=== PATIENT | female | born 1990 | race Caucasian/White ===

== ENCOUNTER → 2017-03-05 | Outpatient (CLI) | payer BC ==
[~2017-03-05] MED LIST: CETI10TA84 PO; PRENTAB26 PO; PRLSR20 PO
== END | disposition home or self-care (01) ==
LOC: C.PAPS 08:28
PROVIDERS: ATTEND Obstetrics & Gynecology
DX: Z01.419 Encounter for gynecological examination (general) (routine) without abnormal findings (principal)

== ENCOUNTER 2019-08-17 19:30 | Inpatient (IN) ==
[2019-08-17] MEDS ORDERED: LACTATED RINGER'S 1,000 ML IV PRN (19:38)
[2019-08-17] MEDS ORDERED: OXYTOCIN 30 UNITS/500 ML BAG IV PRN ×2 (19:38→22:15)
[2019-08-17] MEDS ORDERED: ePHEDrine sulfate 50 MG/ML AMP ONE (19:51)
[2019-08-17] MEDS ORDERED: fentaNYL citrate 100 MCG/2 ML VIAL ONE (19:51)
[2019-08-17] MEDS ORDERED: BUPIVACAINE 0.25% 30 ML VIAL ONE (19:52)
[2019-08-17] MEDS ORDERED: fentaNYL 2MCG/ML ROPIV 1.25MG/ML 100 ML BAG EPI ONE (19:52)
[2019-08-17 20:13] LABS: Hematocrit (blood only) 39.4 % (37-47); Hemoglobin 13.6 g/dL (12.0-16.0); Mean Corpuscular Hemoglobin 29.2 pg (25-34); Mean Corpuscular Volume 84.5 fL (80-100); Mean Platelet Volume 9.4 fL (7.4-10.4); Platelet Count 244 K/uL (130-400); RDW Standard Deviation 39.3 fL (36.4-46.3); Red Blood Count 4.66 M/uL (4.2-5.4); White Blood Count 13.98 K/uL (4.8-10.8)
[2019-08-17 20:20] LABS: Mean Corpuscular Hgb Conc 34.5 g/dL (32-36)
--- NOTE | 2019-08-17 20:37 | Anesthesiology Consultation ---
Date of Service August 17, 2019 Assessment & Plan Chart Review Chart Review: Acceptable Risk for Surgery, Patient NOT seen in Pre Admission Testing and Acceptable Risk for Labor Epidural Consults Requested none ASA ASA2 Proposed Anesthesia Anesthesia Type: Labor Epidural and CSE Risk / Benefits Reviewed With: PT / POA / Parent / Guardian, Accepts Plan and Informed Consent Obtained History Height/Weight Height: 5 ft 5 in Weight: 78.018 kg Allergies Allergy/AdvReac Type Severity Reaction Status Date / Time No Known Allergies Allergy Verified 08/11/19 14:12 Medications Home Medications Medication Instructions Recorded Confirmed Last Taken cetirizine [Zyrtec] 10 mg PO DAILY 10/28/18 08/11/19 07/29/19 05:30 PNV cmb#95-ferrous fumarate-FA 1 tab PO DAILY 07/29/19 08/11/19 07/28/19 21:00 [] omeprazole PO 08/05/19 08/11/19 Unknown guaifenesin PO 08/11/19 08/11/19 Unknown pseudoephedrine HCl PO 08/11/19 08/11/19 Unknown Active Medications Generic Name Dose Route Start Last Admin Trade Name Freq PRN Reason Stop Dose Admin Lactated Ringer's 1,000 mls @ 125 mls/hr 08/17/19 19:38 08/17/19 19:45 Lr IV 08/19/19 19:37 999 mls/hr .Q8H PRN Administration L&D Protocol Protocol NPO Date Last Intake of Fluids: 08/17/19 Time Last Intake of Fluids: 20:00 Date Last Intake of Solids: 08/17/19 Time Last Intake of Solids: 18:00 Past Medical History Medical History 39 weeks gestation of 40 weeks gestation of False labor History of prolonged History of varicella vaccination Irregular contractions Normal labor Exercise / Class Metabolic Activity II 4-5 Yardwork/Stairs/Walk up hill Past Family History Family History Father Dyslipidemia Hypertension Other No pertinent family history in first degree relatives Past Surgical History Surgical History History of wisdom tooth extraction Past Anesthesia History No Hx of Anesthesia Complications and No Family Hx of Anesthesia Complications History of PONV No Hx of PONV and No Hx of Motion Sickness Social History Smoking Status: Never smoker Hx Alcohol Use: No Hx Substance Use: No substance use type: does not use Physical Exam Vital Signs Last Vital Signs Temp 36.5 C 08/17/19 19:52 Pulse 101 H 08/17/19 20:32 Resp 20 08/17/19 19:52 BP 123/75 08/17/19 20:21 Pulse Ox 100 08/17/19 20:32 Constitutional + obese ENMT Mouth: no dentition abnormality Thyromental Distance: > or= 3.5 Finger Breadths Mallampati Class: II Neck normal visual inspection and trachea midline; neck extension not limited Respiratory normal respiratory effort Auscultation: lungs clear to auscultation bilaterally Cardiovascular Rate/Rhythm: regular rate and regular rhythm Heart Sounds: no murmur Vessels: no carotid bruit Musculoskeletal Spine: lumbar spine normal to inspection; normal cervical ROM Neurologic moves all extremities Motor/Sensory: no sensory deficit Psychiatric Orientation: alert and oriented x 3 Testing Laboratory Results 08/17/19 19:57
[2019-08-17] MEDS ORDERED: PROMETHAZINE HCL 25 MG in SODIUM CHLORIDE 0.9% 50 ML IV PRN (20:58)
[2019-08-17] MEDS ORDERED: NALBUPHINE HCL INJ 10 MG/ML AMP IV PRN (20:58)
[2019-08-17] MEDS ORDERED: DiphenhydrAMINE HCL 50 MG/ML VIAL IV PRN (20:58)
[2019-08-17] MEDS ORDERED: fentaNYL 2MCG/ML ROPIV 1.25MG/ML 100 ML BAG EPI PRN (20:58)
[2019-08-17] MEDS ORDERED: ePHEDrine sulfate 50 MG/ML AMP IV PRN (20:58)
[2019-08-17] MEDS ORDERED: NALOXONE HCL 0.4 MG/1 ML VIAL/CARP IV PRN (20:58)
[2019-08-17] MEDS ORDERED: NALOXONE HCL 1 MG in SODIUM CHLORIDE 0.9% 1000ML 1,000 ML IV PRN (20:58)
[2019-08-17] MEDS ORDERED: ONDANSETRON INJ 2 MG/ML 2 ML VIAL IV PRN (20:58)
[2019-08-17] MEDS ORDERED: HYDROCORTISONE ACETATE 25 MG SUPP PR PRN (22:15)
[2019-08-17] MEDS ORDERED: ACETAMINOPHEN 325 MG TAB PO PRN (22:15)
[2019-08-17] MEDS ORDERED: SUPERCREAM 0.870% 15 GM JAR EXT PRN (22:15)
[2019-08-17] MEDS ORDERED: BENZOCAINE 20% AER SPR 82.5 GM CAN EXT PRN (22:15)
[2019-08-17] MEDS ORDERED: OXYCODONE/ACETAMINOPHEN 5mg/325mg TAB PO PRN (22:15)
--- NOTE | 2019-08-17 22:22 | History & Physical Report ---
Date of Service August 17, 2019 Assessment & Plan (1) Active labor at term: will begin 2nd stage. fhts overall reassuring. History of Present Illness Chief Complaint: regular ctx and possible rom Primary Care Provider: Toni Montoya MD 29yo at 40wks mayra presents to L&D with above cc. She presented to L&D and 6cm with srom, clear fluid and desired epidural. 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 PMH: allergies PSH: wisdom teeth SH: no tob, etoh, drugs FH: no brandon anom or mr Allergies Allergy/AdvReac Type Severity Reaction Status Date / Time No Known Allergies Allergy Verified 08/11/19 14:12 Home Medications Home Medications Medication Instructions Recorded Confirmed Type cetirizine [Zyrtec] 10 mg PO DAILY 10/28/18 08/11/19 History PNV cmb#95-ferrous fumarate-FA 1 tab PO DAILY 07/29/19 08/11/19 History [] omeprazole PO 08/05/19 08/11/19 History guaifenesin PO 08/11/19 08/11/19 History pseudoephedrine HCl PO 08/11/19 08/11/19 History Patient History Medical History 39 weeks gestation of 40 weeks gestation of False labor History of prolonged History of varicella vaccination Irregular contractions Normal labor Surgical History History of wisdom tooth extraction Family History Father Dyslipidemia Hypertension Other No pertinent family history in first degree relatives Social History (Updated 03/17/19 @ 15:58 by Bijal Balbuena) Preferred Language: Nepalese Communication Ability: Effective Physical Education Teacher Required: No Beliefs That Will Affect Care: None marital status: Current Living Situation: Family Current Living Situation Comment: lives with and daughter Other Information That Helps Us Care for You: No Feels Safe at Home: Yes Safety Concerns: Feels Safe At This Time Smoking Status: Never smoker Second Hand Exposure: No ; Tobacco Cessation Education Requested by Patient: No Hx Alcohol Use: No Hx Substance Use: No Review of Systems no fever no change in stools no dysuria Physical Exam Constitutional: WD/WN, vitals as above Gastrointestinal (Abdomen): Percussion/Palpation: abdomen soft (gravid); abdomen nontender Psychiatric: A+Ox3, euthymic affect Genitourinary: Manual OB Exam: + cervical dilation 10 cm, + cervical effacement 100% and + station + 2 OB Exam Monitor Tracing: + external FHT monitor used (100, decel to 70s with pushing. ), + scalp electrode used (applied due to maternal pulse very similar), + external uterine monitor used (q3) and + normal FHT variability after fse applied, fhts 105 with accels, early decels. Results & Data Vital Signs (Past 12 Hours) Vital Signs Temp Pulse Resp BP Pulse Ox 08/17/19 22:06 101 H 134/85 08/17/19 21:52 100 H 100 08/17/19 21:50 105 H 139/78 93 08/17/19 21:48 93 H 116/66 08/17/19 21:47 104 H 98 08/17/19 21:42 119 H 98 08/17/19 21:39 105 H 85 L 08/17/19 21:37 100 H 100 08/17/19 21:34 96 H 132/60 08/17/19 21:33 109 H 92 08/17/19 21:32 110 H 96 08/17/19 21:27 104 H 100 08/17/19 21:22 106 H 100 08/17/19 21:20 100 H 90 08/17/19 21:18 97 H 119/59 L 08/17/19 21:17 98 H 90 08/17/19 21:14 101 H 82 L 08/17/19 21:12 98 H 100 08/17/19 21:07 92 H 100 08/17/19 21:03 93 H 117/60 08/17/19 21:02 89 100 08/17/19 21:00 93 H 176/68 H 08/17/19 20:57 90 111/66 96 08/17/19 20:56 86 108/53 L 08/17/19 20:55 90 112/55 L 08/17/19 20:52 88 93 08/17/19 20:49 95 H 134/64 08/17/19 20:47 119 H 91 08/17/19 20:45 93 H 132/73 08/17/19 20:42 99 H 100 08/17/19 20:38 96 H 155/74 H 08/17/19 20:37 101 H 100 08/17/19 20:32 101 H 100 08/17/19 20:27 86 100 08/17/19 20:22 95 H 100 08/17/19 20:21 83 123/75 08/17/19 19:52 97.7 F 95 H 20 135/82 08/17/19 19:39 95 H 135/82
[2019-08-17] MEDS ORDERED: DIPHTHERIA/TETANUS/PERTUSSIS 0.5 ML SYR/VIAL IM ONE (22:27)
[2019-08-17] MEDS ORDERED: OXYTOCIN 20 UNITS in LACTATED RINGER'S 1,000 ML IV SCH (22:30)
--- NOTE | 2019-08-17 22:31 | Delivery Summary ---
Vaginal Delivery Summary Date of Service August 17, 2019 The patient dilated to complete and pushed to deliver a viable female Apgars 8 and 9 via over intact perineum. Mouth and nose bulb suctioned at perineum. Shoulders and body delivered with ease. was vigorous and crying at . Cord clamped at 30 seconds of life and to maternal abdomen where the cord was then doubly clamped and cut. Placenta delivered spontaneously and intact, three-vessel cord. Hemostasis achieved with dilute pitocin and uterine massage and drainage of the bladder for approximately 150 cc under sterile conditions. Cervix and sulci intact. EBL 300 cc. Mother and baby stable recovery. MNP Vaginal Delivery Charge Vaginal Delivery Codes: 23543 global code for the antepartum, delivery, and post-
--- NOTE | 2019-08-17 22:37 | Anesthesia Procedure Note ---
Date of Service August 17, 2019 Anesthesia Post Epidural Note Vital Signs Vital Signs: Temp Pulse Resp BP Pulse Ox 36.5 C 96 H 20 121/73 100 08/17/19 19:52 08/17/19 22:35 08/17/19 19:52 08/17/19 22:35 08/17/19 21:52 Notes Mental Status: alert / awake / arousable Nausea / Vomiting: adequately controlled Pain: adequately controlled Airway Patency, RR, SpO2: stable & adequate BP & HR: stable & adequate Hydration State: stable & adequate Neuraxial Anesthesia: was administered and sensory block is resolving Anesthetic Complications: no major complications apparent Epidural: Removed without complications and With tip intact
--- NOTE | 2019-08-18 07:18 | Obstetrical Progress Note ---
Date of Service August 18, 2019 Assessment & Plan (1) Normal delivery at term: routine pp care. rh pos, ri. breast feeding. doing well, stable. Subjective Ambulation: ambulating normally Voiding: no voiding problems Diet Tolerance:: regular diet Lochia:: Moderate Feeding Type:: breast feeding no pain issues Physical Exam Constitutional WD/WN, vitals as above Respiratory normal respiratory effort, lungs clear to auscultation Cardiovascular Rate/Rhythm: regular rate and regular rhythm Gastrointestinal (Abdomen) Percussion/Palpation: abdomen soft; abdomen nontender ff 2 down nt Neurologic grossly normal Psychiatric A+Ox3, euthymic affect Lymphatic no cervical or axillary lymphadenopathy (no supraclavicular adenopathy) Results & Data Vital Signs (Past 12 Hours) Vital Signs Temp Pulse Pulse Resp BP BP Pulse Ox 08/18/19 04:45 98.1 F 78 16 109/72 98 08/18/19 00:25 98.4 F 87 17 122/75 98 08/17/19 23:50 86 133/69 08/17/19 23:35 82 127/64 08/17/19 23:20 86 18 134/60 08/17/19 23:05 79 130/72 08/17/19 22:50 83 120/65 08/17/19 22:35 96 H 121/73 08/17/19 22:20 89 126/73 08/17/19 22:06 101 H 134/85 08/17/19 21:52 100 H 100 08/17/19 21:50 105 H 139/78 93 08/17/19 21:48 93 H 116/66 08/17/19 21:47 104 H 98 08/17/19 21:42 119 H 98 08/17/19 21:39 105 H 85 L 08/17/19 21:37 100 H 100 08/17/19 21:34 96 H 132/60 08/17/19 21:33 109 H 92 08/17/19 21:32 110 H 96 08/17/19 21:27 104 H 100 08/17/19 21:22 106 H 100 08/17/19 21:20 100 H 90 08/17/19 21:18 97 H 119/59 L 08/17/19 21:17 98 H 90 08/17/19 21:14 101 H 82 L 08/17/19 21:12 98 H 100 08/17/19 21:07 92 H 100 08/17/19 21:03 93 H 117/60 08/17/19 21:02 89 100 08/17/19 21:00 93 H 176/68 H 08/17/19 20:57 90 111/66 96 08/17/19 20:56 86 108/53 L 08/17/19 20:55 90 112/55 L 08/17/19 20:52 88 93 08/17/19 20:49 95 H 134/64 08/17/19 20:47 119 H 91 08/17/19 20:45 93 H 132/73 08/17/19 20:42 99 H 100 08/17/19 20:38 96 H 155/74 H 08/17/19 20:37 101 H 100 08/17/19 20:32 101 H 100 08/17/19 20:27 86 100 08/17/19 20:22 95 H 100 08/17/19 20:21 83 123/75 08/17/19 19:52 97.7 F 95 H 20 135/82 08/17/19 19:39 95 H 135/82
[2019-08-18] MEDS ORDERED: SODIUM CHLORIDE 0.65% NA SOLN 45 ML (OCEAN) ONE (08:02)
[2019-08-18] MEDS: CETIRIZINE HCL 10 MG TABLET PO SCH (08:03)
[2019-08-18] MEDS: DOCUSATE SODIUM 100 MG CAP PO SCH ×2 (08:03→20:36)
[2019-08-18] MEDS: IBUPROFEN 600 MG TAB PO PRN ×2 (11:58→20:37)
[2019-08-19] MEDS: IBUPROFEN 600 MG TAB PO PRN (00:19)
--- NOTE | 2019-08-19 06:57 | Obstetrical Progress Note ---
Date of Service August 19, 2019 Assessment & Plan (1) : PPD#2 doing well. Discharge instructions reviewed. DC home today. Followup 6w PP in office. Subjective Ambulation: ambulating normally Voiding: no voiding problems Diet Tolerance:: regular diet Lochia:: Moderate Feeding Type:: breast feeding Review of Systems All systems reviewed & are unremarkable except as noted in HPI & below Physical Exam Constitutional WD/WN, vitals as above no acute distress Respiratory normal respiratory effort Cardiovascular Rate/Rhythm: regular rate and regular rhythm Gastrointestinal (Abdomen) Inspection/Auscultation: abdomen normal to inspection; abdomen not distended Percussion/Palpation: abdomen soft Genitourinary OB Exam Abdomen: + fundal height Fundus: + firm; not tender Results & Data Vital Signs (Past 12 Hours) Vital Signs Temp Pulse Pulse Resp BP BP 08/19/19 00:10 36.9 C 68 68 18 119/77 119/97 08/18/19 20:30 36.4 C L 85 18 115/71
[2019-08-19] MEDS: DOCUSATE SODIUM 100 MG CAP PO SCH (08:09)
[2019-08-19] MEDS: CETIRIZINE HCL 10 MG TABLET PO SCH (08:09)
== END 2019-08-19 11:30 | disposition home or self-care (01) | DRG 807 ==
LOC: OPB 19:30 → 4S1 19:32 → 4S2 08-18 00:10

== ENCOUNTER 2022-11-19 07:37 | Inpatient (IN) ==
[2022-11-19] MEDS ORDERED: OXYTOCIN 30 UNITS/500 ML BAG IV PRN ×3 (08:13→15:42)
[2022-11-19] MEDS ORDERED: LIDOCAINE 1% LOCAL 20 ML VIAL INFIL PRN (08:13)
[2022-11-19 08:47] LABS: Hematocrit (blood only) 33.2 % (37.0-47.0); Hemoglobin 11.1 g/dl (12.0-16.0); Mean Corpuscular Hemoglobin 26.9 pg (25.0-34.0); Mean Corpuscular Hgb Conc 33.4 g/dL (32.0-36.0); Mean Corpuscular Volume 80.6 fL (80.0-100.0); Mean Platelet Volume 9.5 fL (9.4-12.4); Platelet Count 230 K/uL (130-400); RDW Standard Deviation 37.4 fL (36.4-46.3); Red Blood Count 4.12 M/uL (4.20-5.40); White Blood Count 9.51 K/ul (4.8-10.8)
[2022-11-19] MEDS: LACTATED RINGER'S 1,000 ML IV PRN ×3 (08:47→13:26)
[2022-11-19] MEDS ORDERED: BUPIVACAINE 0.25% PF 30 ML VIAL ONE (08:52)
[2022-11-19] MEDS ORDERED: SODIUM CHLORIDE 0.9% PF INJ 10 ML VIAL ONE (08:52)
[2022-11-19] MEDS ORDERED: fentaNYL citrate PF 100 MCG/2 ML VIAL ONE (08:52)
[2022-11-19] MEDS ORDERED: ePHEDrine sulfate 50 MG/ML AMP ONE (08:52)
[2022-11-19] MEDS ORDERED: fentaNYL 2MCG/ML ROPIVACAINE 1.25MG/ML 100 ML BAG EPI ONE (08:53)
[2022-11-19] MEDS ORDERED: LIDOCAINE 2%/EPINEPHRINE 1:200,000 20 ML PF ONE (08:53)
[2022-11-19 09:05] LABS: Albumin Globulin Ratio 1.3 (0.9-2); Albumin Level 3.4 gm/dl (3.4-5.0); BUN Creatinine Ratio 19.6 (10-20); Bilirubin,Total 0.7 mg/dl (0.2-1.0); Calcium 8.3 mg/dl (8.6-10.3); Creatinine Clr Calc Pharmacy 155.8 ml/min; Est GFR (African American) 145.4 ml/min; Est GFR (Non-African American) 125.5 ml/min; Globulin 2.7 gm/dl (2.5-4.0); Potassium 3.9 mmol/L (3.5-5.1); Total Protein 6.1 gm/dl (6.0-8.3)
[2022-11-19] MEDS ORDERED: NALBUPHINE HCL INJ 10 MG/ML AMP IV PRN (09:44)
[2022-11-19] MEDS ORDERED: diphenhydrAMINE 50 MG/ML VIAL IV PRN (09:44)
[2022-11-19] MEDS ORDERED: NALOXONE HCL 0.4 MG/1 ML VIAL/CARP IV PRN (09:44)
[2022-11-19] MEDS ORDERED: ONDANSETRON INJ 2 MG/ML 2 ML VIAL IV PRN (09:44)
[2022-11-19] MEDS ORDERED: fentaNYL 2MCG/ML ROPIVACAINE 1.25MG/ML 100 ML BAG EPI PRN (09:44)
[2022-11-19] MEDS ORDERED: NALOXONE HCL 1 MG in SODIUM CHLORIDE 0.9% 1000ML 1,000 ML IV PRN (09:44)
[2022-11-19] MEDS ORDERED: ePHEDrine sulfate 50 MG/ML AMP IV PRN (09:44)
--- NOTE | 2022-11-19 09:46 | Anesthesiology Consultation ---
Date of Service November 19, 2022 Assessment & Plan Chart Review Chart Review: Patient NOT seen in Pre Admission Testing and Acceptable Risk for Labor Epidural Consults Requested none ASA ASA2 Proposed Anesthesia Anesthesia Type: Labor Epidural Risk / Benefits Reviewed With: PT / POA / Parent / Guardian, Accepts Plan and Informed Consent Obtained History Height/Weight Height: 5 ft 4 in Weight: 76.657 kg Allergies Allergy/AdvReac Type Severity Reaction Status Date / Time No Known Allergies Allergy Verified 11/18/22 14:42 Medications Home Medications Medication Instructions Recorded Confirmed Last Taken cetirizine 10 mg tablet (Zyrtec) 10 mg PO DAILY 10/28/18 11/18/22 08/16/19 21:00 famotidine 10 mg tablet (Pepcid AC) 10 mg PO BID 04/10/22 11/18/22 Unknown vit with calcium-iron tab PO 04/10/22 11/18/22 Unknown fum-folic acid 27 mg-1 mg tablet fluticasone propionate [Flonase] intranasal 04/21/22 11/18/22 Unknown Active Medications Generic Name Dose Route Start Last Admin Trade Name Freq PRN Reason Stop Dose Admin Lactated Ringer's 1,000 mls @ 125 mls/hr 11/19/22 08:13 11/19/22 09:29 Lr IV 11/21/22 08:12 999 mls/hr .Q8H PRN Administration L&D Protocol Protocol Past Medical History Medical History 39 weeks gestation of 40 weeks gestation of False labor History of prolonged History of varicella vaccination Irregular contractions Normal labor Exercise / Class Metabolic Activity II 4-5 Yardwork/Stairs/Walk up hill Past Family History Family History Father Dyslipidemia Hypertension Other No pertinent family history in first degree relatives Denies family history of Ovarian cancer Breast cancer Colorectal cancer Uterine cancer Past Surgical History Surgical History History of wisdom tooth extraction Past Anesthesia History No Hx of Anesthesia Complications and No Family Hx of Anesthesia Complications History of PONV No Hx of PONV and No Hx of Motion Sickness Social History Smoking Status: Never smoker Hx Alcohol Use: No Hx Substance Use: No substance use type: does not use Physical Exam Vital Signs Last Vital Signs Temp 36.7 C 11/19/22 08:02 Pulse 85 11/19/22 09:40 Resp 20 11/19/22 08:02 BP 124/71 11/19/22 08:30 Pulse Ox 98 11/19/22 09:40 ENMT Mouth: no dentition abnormality Thyromental Distance: > or= 3.5 Finger Breadths Mallampati Class: II Neck normal visual inspection Respiratory normal respiratory effort Auscultation: lungs clear to auscultation bilaterally Cardiovascular Rate/Rhythm: regular rate and regular rhythm Psychiatric Orientation: alert Testing Laboratory Results 11/19/22 08:21 11/19/22 08:21
--- NOTE | 2022-11-19 13:47 | History & Physical Report ---
Date of Service November 19, 2022 Assessment & Plan (1) Supervision of normal intrauterine in multigravida: Plan: 32-year-old presents 39 weeks 1 day gestational age for elective induction of labor secondary to precipitous labor. 1. Fetus: Cat 1 2. Labor: AROM 3. GBS negative 4. Vitals: normal (2) Encounter for induction of labor: Admission and Anticipated Discharge Date Admission Date: November 19, 2022 History of Present Illness Primary Care Provider: Toni Montoya MD Lesley is a 32-year-old presents at 39 weeks 1 day gestational age for elective induction secondary to precipitous labor. has been otherwise uncomplicated. OB Labs: Blood Type O Positive 04/21/22 Antibody Screen NEGATIVE 04/21/22 Hemoglobin 12.2 g/dl (12.0-16.0) 09/02/22 Hematocrit 36.1 % (34.1-44.9) 09/02/22 Mean Corpuscular Volume 87.4 fL (80.0-100.0) 04/21/22 Platelet Count 309 K/uL (130-400) 04/21/22 Rubella IgG Antibody Immune (Immune) 04/21/22 Rapid Plasma Reagin Nonreactive (Nonreactive) 04/21/22 Hepatitis B Surface Antigen Neg (Neg) 12/27/18 Hepatitis B Surface Antigen. NON-REACTIVE (NON-REACTIVE) 04/21/22 Hepatitis C Antibody NEG (NEG) 06/11/17 Hepatitis C Antibody (EIA) NON-REACTIVE (NON-REACTIVE) 04/21/22 HIV (1&2) Ab and P24 Ag, 4th Gener Neg (Neg) 12/27/18 HIV (1&2) Ag and Ab Confirmation NON-REACTIVE (NON-REACTIVE) 04/21/22 Glucose 1 Hour 50 gm Load 141 mg/dl (70-130) H 06/11/22 OB Optional Labs: Chlamydia trachomatis RNA NOT DETECTED (NOT DETECTED) 04/21/22 Neisseria gonorrhoeae RNA NOT DETECTED (NOT DETECTED) 04/21/22 Labs Reviewed: No labs to pull forward from prior - HK cfdna-low risk--mln Declines msafp--mln Allergies Allergy/AdvReac Type Severity Reaction Status Date / Time No Known Allergies Allergy Verified 11/18/22 14:42 Home Medications Medication Instructions Recorded Confirmed Type cetirizine 10 mg tablet (Zyrtec) 10 mg PO DAILY 10/28/18 11/19/22 History famotidine 10 mg tablet (Pepcid AC) 10 mg PO BID 04/10/22 11/19/22 History fluticasone propionate [Flonase] intranasal 04/21/22 11/18/22 History prenat.vits,aureliano,lzo-azwm-fzqej 1 tab PO DAILY 11/19/22 11/19/22 History Patient History Medical History (Updated 11/19/22 @ 13:46 by Joe Martinez MD) 39 weeks gestation of 40 weeks gestation of False labor History of prolonged History of varicella vaccination Irregular contractions Normal labor Surgical History History of wisdom tooth extraction Family History Father Dyslipidemia Hypertension Other No pertinent family history in first degree relatives Denies family history of Ovarian cancer Breast cancer Colorectal cancer Uterine cancer Social History (Updated 11/19/22 @ 08:02 by Lala Lay RN) Smoking Status: Never smoker Second Hand Exposure: No; Hx Alcohol Use: No Hx Substance Use: No Preferred Language: Estonian Communication Ability: Effective Burglar Alarm Operator Required: No Beliefs That Will Affect Care: None marital status: marital status details: Ahmet Arceo [phone] Current Living Situation: Spouse and Family Current Living Situation Comment: lives with and 2 daughter, no pets. 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 [employer] Other Information That Helps Us Care for You: No Feels Safe at Home: Yes Safety Concerns: Feels Safe At This Time Assistive Devices: None Physical Exam Genitourinary: Manual OB Exam: + cervical dilation (2.5), + cervical effacement 80%, + station -2 and + amniotic fluid (AROM) OB Exam Monitor Tracing: + external FHT monitor used, + external uterine monitor used, + category I and + normal FHT variability; no early decelerations present, no late decelerations present and no variable decelerations Results & Data Vital Signs (Past 12 Hours) Vital Signs Temp Pulse Resp BP Pulse Ox 11/19/22 08:02 36.7 C 20 11/19/22 13:40 91 H 97 11/19/22 13:35 98 H 100 11/19/22 13:30 94 H 100 11/19/22 13:29 89 128/78 11/19/22 13:25 95 H 100 11/19/22 13:20 92 H 100 11/19/22 13:15 88 100 11/19/22 13:14 82 118/70 11/19/22 13:10 92 H 100 11/19/22 13:05 85 100 11/19/22 13:00 98 H 20 99 11/19/22 13:01 97 H 89 L 11/19/22 12:58 83 117/71 11/19/22 12:55 97 11/19/22 12:55 101 H 11/19/22 12:55 97 H 92 11/19/22 12:50 86 98 11/19/22 12:47 97 H 91 11/19/22 12:45 90 99 11/19/22 12:43 36.8 C 82 20 126/65 11/19/22 12:40 88 100 11/19/22 12:35 81 100 11/19/22 12:30 82 100 11/19/22 12:27 86 114/62 11/19/22 12:25 86 100 11/19/22 12:22 83 91 11/19/22 12:20 96 H 100 11/19/22 12:15 84 100 11/19/22 12:12 80 112/61 11/19/22 12:10 76 100 11/19/22 12:05 88 99 11/19/22 12:00 82 100 11/19/22 11:57 83 109/61 11/19/22 11:55 80 100 11/19/22 11:50 78 99 11/19/22 11:45 91 H 97 11/19/22 11:43 82 20 105/60 11/19/22 11:40 80 100 11/19/22 11:35 82 100 11/19/22 11:30 88 100 11/19/22 11:27 81 20 101/56 L 11/19/22 11:25 88 100 11/19/22 11:23 103 H 94 11/19/22 11:20 91 H 99 11/19/22 11:15 95 H 100 11/19/22 11:13 91 H 20 98/55 L 11/19/22 11:10 95 H 100 11/19/22 11:05 88 100 11/19/22 11:00 36.8 C 95 H 20 100 11/19/22 10:58 96 H 89/53 L 11/19/22 10:55 97 H 100 11/19/22 10:50 98 H 98 11/19/22 10:45 108 H 100 11/19/22 10:40 116 H 20 112/60 99 11/19/22 10:36 96 H 120/65 11/19/22 10:35 95 H 100 11/19/22 10:32 111 H 20 118/74 11/19/22 10:30 97 H 100 11/19/22 10:26 102 H 20 117/61 11/19/22 10:25 107 H 100 11/19/22 10:20 109 H 99 11/19/22 10:21 110 H 20 124/64 11/19/22 10:15 99 11/19/22 10:15 105 H 11/19/22 10:15 112 H 20 128/65 11/19/22 10:13 92 H 125/66 11/19/22 10:10 99 H 99 11/19/22 10:11 98 H 20 115/64 11/19/22 10:09 103 H 20 120/63 11/19/22 10:07 99 H 134/69 11/19/22 10:05 91 H 20 133/88 99 11/19/22 10:03 90 127/68 11/19/22 10:01 91 H 20 124/69 11/19/22 10:00 92 H 100 11/19/22 09:59 86 145/75 H 11/19/22 09:57 86 134/70 11/19/22 09:55 86 18 131/74 100 11/19/22 09:50 82 100 11/19/22 09:51 85 18 129/74 11/19/22 09:45 86 99 11/19/22 09:40 85 98 11/19/22 09:35 89 100 11/19/22 09:30 81 99 11/19/22 09:25 93 H 97 11/19/22 09:20 91 H 100 11/19/22 09:15 84 100 11/19/22 09:10 91 H 100 11/19/22 09:05 92 H 100 11/19/22 09:00 93 H 100 11/19/22 08:55 90 100 11/19/22 08:50 91 H 100 11/19/22 08:45 92 H 100 11/19/22 08:30 93 H 124/71 11/19/22 07:49 90 159/75 H Coding Level of Care Code None Diagnoses Supervision of normal intrauterine in multigravida Z34.80 Encounter for induction of labor Z34.90
[2022-11-19] MEDS ORDERED: NURSING L&D Epidural Breakthrough Pain Update ONE (15:08)
[2022-11-19] MEDS ORDERED: DIPHTHERIA/TETANUS/PERTUSSIS 0.5mL SYR/VIAL (Age 7+yrs) IM ONE (15:42)
[2022-11-19] MEDS ORDERED: BENZOCAINE 20% AER SPR 82.5 GM CAN EXT PRN (15:42)
[2022-11-19] MEDS ORDERED: bisacodyL 10 MG SUPP PR PRN (15:42)
[2022-11-19] MEDS ORDERED: ACETAMINOPHEN 325 MG TAB PO PRN (15:42)
[2022-11-19] MEDS ORDERED: HYDROCORTISONE ACETATE 25 MG SUPP PR PRN (15:42)
[2022-11-19] MEDS: IBUPROFEN 600 MG TAB PO PRN ×2 (17:07→20:56)
[2022-11-19] MEDS: DOCUSATE SODIUM 100 MG CAP PO SCH (20:54)
[2022-11-20] MEDS: IBUPROFEN 600 MG TAB PO PRN ×3 (02:57→12:26)
[2022-11-20 06:56] LABS: Hematocrit (blood only) 35.7 % (37.0-47.0); Hemoglobin 11.4 g/dl (12.0-16.0); Mean Corpuscular Hemoglobin 26.3 pg (25.0-34.0); Mean Corpuscular Hgb Conc 31.9 g/dL (32.0-36.0); Mean Corpuscular Volume 82.4 fL (80.0-100.0); Mean Platelet Volume 9.6 fL (9.4-12.4); Platelet Count 232 K/uL (130-400); RDW Coefficient of Variation 12.8 % (11.5-14.5); RDW Standard Deviation 38.5 fL (36.4-46.3); Red Blood Count 4.33 M/uL (4.20-5.40); White Blood Count 12.11 K/ul (4.8-10.8)
--- NOTE | 2022-11-20 07:25 | Obstetrical Progress Note ---
Date of Service November 20, 2022 Assessment & Plan (1) Encounter for induction of labor: (2) Supervision of normal intrauterine in multigravida: Plan Lesley is a 32 y/o female who is PPD #1 following delivery at 39 weeks -Meeting all milestones -O+/GBS negative/Rubella immune -Vitals reviewed and WNL, hemoglobin stable -Follow up for 6 weeks for appointment -Continue routine care -Plan for d/c at 24hr tomy Admission and Anticipated Discharge Date Admission Date: November 19, 2022 Supervising Physician Co-Signing Physician Notes patient seen and evaluated with resident and agree with the above findings and plan. Routine OB care. Stable for discharge. Subjective Lesley is a 32 y/o female who is PPD #1 following delivery at 39 weeks. She reports feeling well overall this morning. Has abdominal cramping especially with breast feeding but pain well managed on analgesics. Voiding without issue. Tolerating meals overnight and able to ambulate some. Has some persistent lochia with some improvement this morning. Currently breast feeding. Review of Systems Constitutional: no fever, no chills and no sweats Respiratory: no cough, no dyspnea and no wheezing Cardiovascular: no chest pain, no palpitations and no calf pain Genitourinary: no dysuria Neurologic: no headache(s) Physical Exam Constitutional: WD/WN, vitals as above no acute distress Respiratory: no respiratory distress Auscultation: lungs clear to auscultation bilaterally; no rales, no rhonchi and no wheezes Cardiovascular: RRR, no murmur, no edema Extremities: no calf tenderness and no edema Negative Megan's sign bilaterally. Gastrointestinal (Abdomen): Inspection/Auscultation: normal bowel sounds Genitourinary: Uterine fundus firm, palpable below the umbilicus. Results & Data Vital Signs (Past 12 Hours) Vital Signs Temp Pulse Resp BP O2 Del Method 11/20/22 03:35 36.8 C 76 18 115/76 Room Air 11/19/22 23:40 36.9 C 73 18 108/72 Room Air 11/19/22 19:50 36.8 C 85 18 127/80 Room Air Resident Activity Tracking Resident Involvement: Resident Care Provided Care Provided: OB Delivery
[2022-11-20] MEDS ORDERED: PRENATAL VITAMIN 1 TAB PO SCH (08:00)
[2022-11-20] MEDS: DOCUSATE SODIUM 100 MG CAP PO SCH (08:44)
[2022-11-20] MEDS ORDERED: bisacodyL 5 MG TABEC PO SCH (20:00)
--- NOTE | 2022-11-21 15:31 | Anesthesia Procedure Note ---
Date of Service November 21, 2022 Anesthesia Post Epidural Note Vital Signs Vital Signs: Temp Pulse Resp BP Pulse Ox O2 Del Method 36.7 C 69 16 109/69 96 Room Air 11/20/22 15:50 11/20/22 15:50 11/20/22 15:50 11/20/22 15:50 11/20/22 13:37 11/20/22 08:20 Pain Intensity Bilateral Abdomen: Pain Intensity: 2 Notes Mental Status: alert / awake / arousable Nausea / Vomiting: adequately controlled Pain: adequately controlled Airway Patency, RR, SpO2: stable & adequate BP & HR: stable & adequate Hydration State: stable & adequate Neuraxial Anesthesia: was administered and sensory block is resolving Anesthetic Complications: no major complications apparent and Pt Satisfied with anesthetic care Epidural: Removed without complications and With tip intact
--- NOTE | 2022-11-24 22:25 | Delivery Summary ---
DATE OF SERVICE: 11/19/2022 PROCEDURE: Normal spontaneous vaginal delivery. SURGEON: Joe Martinez MD. PREOPERATIVE DIAGNOSES: 1. Single intrauterine at 39+ weeks' gestational age. 2. History of precipitous delivery. POSTOPERATIVE DIAGNOSES: 1. Single intrauterine at 39+ weeks' gestational age. 2. History of precipitous delivery. 3. Status post procedure. ESTIMATED BLOOD LOSS: 200 mL. DRAINS: None. FLUIDS: Continuous lactated Ringer. URINE OUTPUT: Not measured. COMPLICATIONS: None. FINDINGS: Viable female with weight of 7 pounds 9-1/2 ounces and Apgars of 8 and 9 at one and five talisha janet respectively. DESCRIPTION OF PROCEDURE: The patient progressed to 10 cm dilated, 100% effaced, positive 2 station, pushed over intact perineu m with epidural anesthesia and delivered a viable female with weight and Apgars as noted abov e. Head of the delivered in LILY position, restituted to left transverse. No nuchal cord was noted. Body and shoulders quickly followed. was noted to be vigorous soon after delivery a nd 1 minute delayed cord clamping was initiated. Cord was then double clamped and cut. janette ined on maternal abdomen. Cord blood was obtained. Attention was then turned to delivery of the guido centa, which was delivered intact, 3-vessel cord, gentle cord traction. On inspection of perineum an d vagina, cervix, there was noted to be no lacerations. Sponge and instrument counts were correct at the completion of the case with mother and stable in the immediate post-delivery period. Job ID: [id number]
== END 2022-11-20 17:20 | disposition home or self-care (01) | DRG 807 ==
LOC: 4S1 07:37 → 4E2 18:10